=== PATIENT | male | born 1990 | race Caucasian/White ===

== ENCOUNTER 2023-05-22 23:28 | Emergency (ER) | payer BC, OTHER ==
[2023-05-23] MEDS ORDERED: Ibuprofen 800 MG TAB ONE (01:07)
== END 2023-05-23 01:45 | disposition home or self-care (01) ==
LOC: EEVIPCON 23:28 → ERS 23:28
DX: M25.552 Pain in left hip (principal); F17.220 Nicotine dependence, chewing tobacco, uncomplicated; V43.02XA Car driver injured in collision with other type car in nontraffic accident, initial encounter; Y92.410 Unspecified street and highway as the place of occurrence of the external cause
CPT/HCPCS: 93005